=== PATIENT | male | born 1985 | race Caucasian/White ===

== ENCOUNTER 2018-06-21 14:43 | Emergency (ER) | payer OTHER ==
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
[2018-06-21] MEDS ORDERED: Octyl 2-Cyanoacrylate 1 Tube TOP ONE (15:25)
[2018-06-21 15:48] LABS: CHLORIDE,CL 103 mmol/L (98-107); SODIUM,NA 138 mmol/L (136-148)
== END 2018-06-21 16:35 | disposition home or self-care (01) ==
LOC: MW.ED 14:43
DX: S51.011A Laceration without foreign body of right elbow, initial encounter (principal); E10.9 Type 1 diabetes mellitus without complications; Z02.89 Encounter for other administrative examinations; Z79.4 Long term (current) use of insulin; V89.2XXA Person injured in unspecified motor-vehicle accident, traffic, initial encounter
CPT/HCPCS: 12001; 36415; 80053; 82962; 83690; 84484; 85025; 93005; 99283; A9270